=== PATIENT | female | born 1995 | race African-American/Black ===

== ENCOUNTER 2017-01-19 09:46 | Emergency (ER) | payer OTHER ==
[~2017-01-19] VITALS: Ht 160 cm; Wt 47.7 kg
[~2017-01-19 09:46] MED LIST: NORE0.352 PO
[2017-01-19] MEDS ORDERED: CefTRIAXone SODIUM 1 GM/VIAL IM ONE (12:45)
[2017-01-19] MEDS ORDERED: AZITHROMYCIN 250 MG TABLET PO ONE (12:45)
[2017-01-19] MEDS ORDERED: LIDOCAINE HCL/PF 1% 2 ML VIAL IM ONE (12:45)
[2017-01-19 14:16] VITALS: BP 127/71
== END 2017-01-19 14:19 | disposition home or self-care (01) ==
LOC: EMS 09:57
DX: N72 Inflammatory disease of cervix uteri (principal); R03.0 Elevated blood-pressure reading, without diagnosis of hypertension
CPT/HCPCS: 81025; 87210; 96372; 99284; J0696; J3490

== ENCOUNTER 2017-06-02 14:20 | Emergency (ER) | payer OTHER ==
[~2017-06-02] VITALS: Ht 160 cm; Wt 51.8 kg
[2017-06-02 16:59] LABS: AMPHET/METH SCREEN,URINE NEGATIVE (NEGATIVE); BARBITURATE SCREEN, URINE NEGATIVE (NEGATIVE); BENZODIAZEPINES SCREEN,URINE NEGATIVE (NEGATIVE); CANNABINOID SCREEN,URINE POSITIVE (NEGATIVE); COCAINE SCREEN,URINE NEGATIVE (NEGATIVE); METHADONE SCREEN, URINE NEGATIVE (NEGATIVE); OPIATE SCREEN,URINE NEGATIVE (NEGATIVE)
[2017-06-02 17:04] LABS: PHENCYCLIDINE SCREEN,URINE NEGATIVE (NEGATIVE)
[2017-06-02 17:42] VITALS: BP 115/63
== END 2017-06-02 17:43 | disposition home or self-care (01) ==
LOC: EMS 14:24
DX: F10.10 Alcohol abuse, uncomplicated (principal); F12.90 Cannabis use, unspecified, uncomplicated; F17.200 Nicotine dependence, unspecified, uncomplicated; Y90.9 Presence of alcohol in blood, level not specified
CPT/HCPCS: 99283; 99406

== ENCOUNTER 2020-08-13 13:21 | Emergency (ER) | payer OTHER ==
[~2020-08-13] VITALS: Ht 160 cm; Wt 56.8 kg
[2020-08-13] MEDS ORDERED: IBUPROFEN 600 MG TABLET PO ONE (14:30)
[2020-08-13] MEDS ORDERED: NEOMYCIN/POLYMYXIN B/HYDROCORT 10 ML OTIC SOLUTION AS ONE (14:30)
[2020-08-13 14:44] VITALS: BP 129/76
== END 2020-08-13 14:54 | disposition home or self-care (01) ==
LOC: EMS 13:25
DX: H60.92 Unspecified otitis externa, left ear (principal); F12.90 Cannabis use, unspecified, uncomplicated
CPT/HCPCS: 99283

== ENCOUNTER 2021-09-21 22:32 | Emergency (ER) | payer OTHER ==
[~2021-09-21] VITALS: Ht 160 cm; Wt 65.0 kg
[2021-09-21] MEDS ORDERED: SODIUM CHLORIDE 0.9% 1,000 ML IV ONE (23:45)
[2021-09-21] MEDS ORDERED: ACETAMINOPHEN 500 MG TABLET PO ONE (23:45)
[2021-09-22] MEDS ORDERED: DiphenhydrAMINE HCL 50 MG/ML VIAL IVP ONE
[2021-09-22 01:05] VITALS: BP 123/78
== END 2021-09-22 01:37 | disposition home or self-care (01) ==
LOC: EMS 22:32
DX: O99.352 Diseases of the nervous system complicating pregnancy, second trimester (principal); G43.909 Migraine, unspecified, not intractable, without status migrainosus; F12.90 Cannabis use, unspecified, uncomplicated; Z98.890 Other specified postprocedural states; Z3A.19 19 weeks gestation of pregnancy
CPT/HCPCS: 96361; 96374; 99283; J1200; J7030